=== PATIENT | female | born 1975 | race Caucasian/White ===

== ENCOUNTER 2018-10-14 18:02 | Emergency (ER) | payer OTHER ==
[2018-10-14 18:11] VITALS: BP 136/76
[2018-10-14] MEDS ORDERED: IBUPROFEN 800 MG TABLET PO STA (18:27)
--- NOTE | 2018-10-14 18:30 | ED Physician Documentation ---
History of Present Illness - Stated complaint Stated Complaint: LIP LAC/JAW PX - Chief complaint Chief Complaint: Laceration - History obtained from History obtained from: Patient, Family - History of Present Illness Timing: Today Pain level max: 5 Pain level now: 4 - Additonal information Additional information: Patient was doing medicine ball slams on the ball bounced up struck her in the lower lip. Has a laceration on the inner lip as well as a sore jaw. Is able to open and close. Worse with movement, better with rest. Has not taken anything for this Review of Systems Constitutional: denies: Fever, Chills Nose: denies: Rhinorrhea / runny nose, Congestion Throat: denies: Sore throat Cardiac: denies: Chest pain / pressure Respiratory: denies: Cough GI: denies: Vomiting, Diarrhea Skin: denies: Rash Musculoskeletal: denies: Neck pain, Back pain Neurologic: denies: Focal weakness, Numbness, Confused, LOC PD PAST MEDICAL HISTORY - Past Medical History Past Medical History: No - Past Surgical History Past Surgical History: No - Present Medications Home Medications: Ambulatory Orders Medication Instructions Recorded Confirmed Chlorhexidine Gluconate [Peridex] 15 ml MM QID #1 bot 10/14/18 - Allergies Allergies/Adverse Reactions: Allergies Allergy/AdvReac Type Severity Reaction Status Date / Time No Known Drug Allergies Allergy Verified 10/14/18 18:10 - Living Situation Living Situation: reports: With family Living Arrangement: reports: At home - Social History Does the pt smoke?: No Does the pt have substance abuse?: No PD ED PE NORMAL - Vitals Vital signs reviewed: Yes - General General: Alert and oriented X 3, No acute distress - HEENT HEENT: PERRL, Moist mucous membranes, Other (inner lip laceration, 1 cm linear. non-tender exam of the facial bones and mandible. FROM present. Dentition and bite normal. 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 This does not require sutures. Will prescribe Peridex for home. Will stay on a liquid diet today. No evidence of mandibular fracture or facial bone fracture. No dental injury. No dislocation. Patient and family counseled regarding signs and symptoms for which I believe and urgent re- evaluation would be necessary. Patient with good understanding of and agreement to plan and is comfortable going home at this time This document was made in part using voice recognition software. While efforts are made to proofread this document, sound alike and grammatical errors may occur. Departure - Departure Disposition: Home, Self Care Clinical Impression: Laceration of mouth Qualifiers: Encounter type: initial encounter Qualified Code(s): S01.512A - Laceration without foreign body of oral cavity, initial encounter Contusion of face Qualifiers: Encounter type: initial encounter Qualified Code(s): S00.83XA - Contusion of other part of head, initial encounter Condition: Good Instructions: ED Contusion Face, ED Laceration Mouth Follow-Up: BRIGITTE KLINE [Primary Care Provider] - Within 1 week Prescriptions: Chlorhexidine Gluconate [Peridex] 15 ml MM QID #1 bot Comments: Return if you worsen. The laceration will heal quickly, likely 1 to 3 days. Stick to a liquid diet tonight and likely tomorrow. You can use Motrin or Tylenol as needed for pain. Return if you notice redness, swelling or drainage from the wound. Use the Peridex as prescribed Discharge Date/Time: 10/14/18 18:35
== END 2018-10-14 18:35 | disposition home or self-care (01) ==
LOC: ED 18:02
DX: S01.512A Laceration without foreign body of oral cavity, initial encounter (principal); W21.09XA Struck by other hit or thrown ball, initial encounter; Y93.B9 Activity, other involving muscle strengthening exercises
CPT/HCPCS: 99283; A9270